=== PATIENT | male | born 1985 ===

== ENCOUNTER 2021-08-12 19:39 | Emergency (ER) | payer BC ==
[~2021-08-12] VITALS: Ht 167.6 cm; Wt 77.1 kg
--- NOTE | 2021-08-12 19:50 | NUR ---
Dr. Posada on bedside for MSE.
[2021-08-12] MEDS ORDERED: ONDANSETRON 4 MG/2 ML VIAL IV ONE (20:00)
[2021-08-12] MEDS ORDERED: IV NORMAL SALINE 1000 ML BAG IV ONE (20:00)
--- NOTE | 2021-08-12 20:00 | NUR ---
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 Pt c/o nausea, body aches, night sweats x 2 days, no hx.
[2021-08-12] MEDS ORDERED: ONDANSETRON 4 MG/2 ML VIAL ONE (20:01)
[2021-08-12 20:10] LABS: HEMATOCRIT 42.2 % (36.7-47.1); MEAN CORPUSCULAR HEMOGLOBIN 27.3 uug (23.8-33.4); PLATELET COUNT (AUTO) 172 K/uL (152-348)
[2021-08-12 20:17] LABS: CREATININE 1.3 mg/dL (0.6-1.3); POTASSIUM 3.4 mmol/L (3.5-5.1)
[2021-08-12 20:18] LABS: *AMPHETAMINE, URINE NEGATIVE (NEGATIVE); *CANNABINOID, URINE POSITIVE (NEGATIVE); *COCCAINE, URINE NEGATIVE (NEGATIVE); *OPIATE, URINE NEGATIVE (NEGATIVE); *PHENCYCLIDINE SCREEN,URINE NEGATIVE (NEGATIVE)
[2021-08-12 20:23] LABS: BILIRUBIN,DIRECT 0.2 mg/dL (0.0-0.2); BILIRUBIN,TOTAL 0.9 mg/dL (0.2-1.0); TOTAL PROTEIN, SERUM 7.5 g/dL (6.4-8.2)
--- NOTE | 2021-08-12 21:39 | NUR ---
Patient discharged to home in stable condition. Written and verbal after care instructions given. Patient verbalizes understanding of instructions. Stressed follow up or return to ER for worsening s/s. Patient ambulated fr the ER with steady gait. All belongings with patient.
[2021-08-12 21:40] VITALS: BP 126/78
== END 2021-08-12 21:41 | disposition home or self-care (01) ==
LOC: ER 19:42
DX: R55 Syncope and collapse (principal); Z20.822 Contact with and (suspected) exposure to COVID-19
CPT/HCPCS: 36415; 80048; 80076; 80307; 85025; 87426; 93005; 96361; 96374; 99284; J2405; J7040; A4663